=== PATIENT | male | born 1995 | race Two or more races ===

== ENCOUNTER 2023-08-11 18:24 | Emergency (ER) | payer MEDICAID, SELFPAY ==
[2023-08-11 19:00] VITALS: BP 121/68; PULSE 60; RESP 16; TEMP 36.6; O2SAT 100; BMI 38.3
--- NOTE | 2023-08-11 19:28 | ED_ITS ---
HPI - Abdominal Pain General Chief Complaint: Abdominal Pain Stated Complaint: Abdominal pain Time Seen by Provider: 08/11/23 18:46 Source: patient and family Mode of arrival: ambulatory Limitations: no limitations History of Present Illness HPI narrative: 28 yo male with PMH of THC use he comes in with c/o intermittent chronic abdominal pain and n/v notes the past few days have been bad with epigastric pain n/v every time he eats was seen at [facility] on 08/10 told he had normal labs and benign liver lesion. He notes he cannot keep anything down. Takes hot showers to relieve the pain. Was Rx carafate but it does not help. He uses the THC to help with stress and anxiety. US shows fatty liver and 1.2 cm hemangioma otehrwise normal GB, CBD, pancreas. MD elicited complaint: abdominal pain Pertinent past history: none Onset (ago): year(s) Pain Consistency: intermittent Location: epigastric Severity: severe Quality: stabbing Radiation: epigastric Migration to: no migration Exacerbating factors: eating Relieving factors: nothing Context: history of similar episodes Associated symptoms: nausea and vomiting Treatments prior to arrival: antacids Related Data Previous Rx's Medication Instructions Recorded lorazepam 1 mg tablet (Ativan) 1 mg PO BEDTIME PRN sleep #7 tabs 08/11/23 omeprazole 40 mg capsule,delayed 40 mg PO DAILY #14 caps 08/11/23 release ondansetron 4 mg disintegrating 4 mg PO Q8H PRN nausea and 08/11/23 tablet vomiting #20 tabs Allergies Allergy/AdvReac Type Severity Reaction Status Date / Time No Known Allergies Allergy Verified 08/11/23 19:00 Review of Systems Review of Systems Constitutional : No Weight loss, No Fever, No Chills ENT/Mouth : No sore throat, No Rhinorrhea Eyes: No Swelling, No Redness Cardiovascular : No Chest Pain, No SOB, NoEdema Respiratory : No Cough, No Sputum, No Wheezing Gastrointestinal : Positive Nausea, Positive Vomiting, positive Diarrhea, positive abdominal Pain, No Hematochezia, No Melena Genitourinary : No Dysuria, No Urinary Frequency, No Hematuria, No Urgency Musculoskeletal : No joint pain, No Myalgias, No Joint Swelling Skin : No Skin Lesions, No rash Neuro : No Weakness, No Numbness, No Dizziness, No Headache Psych : No Anxiety/Panic, No Depression Heme/Lymph: No Bruising, No Lymphadenopathy Endocrine : No Polyuria, No Polydipsia All other systems reviewed and are negative. [facility] Past Medical History Attestation statement: The following information was validated with the patient. Medical History Cyclical vomiting Social History Social History Patient Tobacco Use Status: Never used Tobacco Smoked in Last 30 Days: No Use of substances other than those prescribed or required for medical reasons: Yes Substance Use Type: Marijuana Substance Use Frequency: Chronic Longstanding Advance Directives: No Advance Directives Information Provided: No Physical Exam ED Vital Signs: Vital Signs - 24 hr 08/11/23 19:00 08/11/23 19:35 08/11/23 20:00 Temperature 97.8 F Pulse Rate 60 54 52 Respiratory Rate 16 18 16 Blood Pressure 121/68 130/78 138/78 Pulse Oximetry 100 98 98 Oxygen Delivery Method Room Air Room Air Room Air BMI result Body Mass Index 38.3 Appearance: Alert. Oriented X3. No acute distress. Eyes: Pupils equal, round and reactive to light. ENT: Pharynx mildly dry MM Neck: Normal inspection. Neck supple. CVS: Normal heart rate and rhythm. Pulses normal. Respiratory: No respiratory distress. Breath sounds normal. Abdomen: Soft and mild epigastric ttp . Skin: Skin warm and dry. Normal skin color. Normal skin turgor. Extremities: No lower extremity edema. No calf ttp Neuro: Oriented X 3. No motor deficit. No sensory deficit. Medical Decision Making Medical Decision Making MDM Narrative: 28 yo male with PMH of THC use and notes intermittent upper abdominal pain and n/v after eating. He does use hot showers. This is not new to him it has happened in the past. I suspect that this is THC induced vomiting vs gastritis vs PUD. At this time will obtain basic labs, IVF x 2L, pepcid and droperidol. Just had US and pain is mild in epigastric area has no RLQ pain doubt appendicitis, obstruction. Differential Diagnosis Differential Diagnoses: The differential diagnosis associated with the presentation includes gastritis, cylical vomiting, PUD, THC induced emesis syndrome Admission/Observation Consideration of admission/observation: Escalation of care including admission/observation considered feels better tolerating PO wants to go home Lab Data MDM Lab Attestation statement: I reviewed the patient's lab results. 08/11/23 19:34 08/11/23 19:34 Labs: Lab Results 08/11/23 Range/Units 19:34 WBC 9.7 (4.8-10.8) X10*3/uL RBC 5.16 (4.60-5.80) X10*6/uL Hgb 14.6 (14.0-18.0) g/dl Hct 43.2 (42.0-52.0) % MCV 83.7 (80.0-98.0) fL MCH 28.3 (27.0-33.0) pg MCHC 33.8 (31.0-36.0) g/dl RDW 13.0 (11.0-16.0) % Plt Count 287 (160-400) X10*3/uL MPV 9.8 (9.4-12.4) fL Immature Gran % (Auto) 0.2 (0.0-0.4) % Neut % (Auto) 69.2 (45-73) % Lymph % (Auto) 23.5 (20-40) % [place] % (Auto) 6.5 (2-11) % Eos % (Auto) 0.4 (0-4) % Baso % (Auto) 0.2 (0-2) % Lymph # (Auto) 2.3 (1.2-4.9) X10*3/uL [place] # (Auto) 0.6 (0.1-1.2) X10*3/uL Eos # (Auto) 0.0 (0.0-0.4) X10*3/uL Baso # (Auto) 0.0 (0.0-0.2) X10*3/uL Abs Immat Gran (auto) 0.02 (0.00-0.03) X10*3/uL Absolute Neuts (auto) 6.7 (2.0-8.3) x10*3/uL Absolute Nucleated RBC 0.000 (0.0-0.012) X10*3/uL Nucleated RBC % (auto) 0.0 (0.0-0.2) /100WBC Sodium 140 (135-145) mmol/L Potassium 3.9 (3.3-5.1) mmol/L Chloride 108 (96-108) mmol/L Carbon Dioxide 19 L (22-29) mmol/L Anion Gap 17 (12-20) BUN 9 (9-16) mg/dL Creatinine 1.04 (0.5-1.4) mg/dL Estim Creat Clear Calc 119.7 Estimated GFR > 60 Random Glucose 90 (60-115) mg/dL Calcium 9.5 (8.4-10.2) mg/dL Magnesium 2.1 (1.6-2.6) mg/dL Total Bilirubin 0.7 (0.0-1.0) mg/dL Direct Bilirubin 0.2 (0.0-0.5) mg/dL AST 17 (5-37) U/L ALT 21 (0-40) U/L Alkaline Phosphatase 88 (39-117) U/L Total Protein 7.7 (6.5-8.0) g/dL Albumin 4.4 (3.5-5.0) g/dL Lipase 17 (8-78) U/L Independent Historian Clinical information obtained from an independent historian. History obtained from or confirmed by: Spouse External Record Review External record reviewed: Outpatient record and Prior outpatient radiology Prescription Management I considered prescription management with: Other Medications Administered Discontinued Medications Generic Name Dose Route Start Last Admin Trade Name Freq PRN Reason Stop Dose Admin Droperidol 1.25 mg 08/11/23 19:27 08/11/23 19:49 Droperidol 5 Mg/2 Ml Vial IVPUSH 08/11/23 19:28 1.25 mg ONCE ONE Administration Famotidine 20 mg 08/11/23 19:27 08/11/23 19:49 Famotidine/Pf 20 Mg/2 Ml Vial IVPUSH 08/11/23 19:28 20 mg ONCE ONE Administration Sodium Chloride 1,000 mls @ 999 mls/hr 08/11/23 19:30 08/11/23 19:50 Ns IV 08/11/23 20:30 999 mls/hr .Q1H1M CLAUDETTE Administration Sodium Chloride 1,000 mls @ 999 mls/hr 08/11/23 19:30 08/11/23 19:51 Ns IV 08/11/23 20:30 999 mls/hr .Q1H1M CLAUDETTE Administration Discharge Plan Discharge Clinical Impression: Cyclical vomiting Patient Disposition: Home, Self-Care Instructions: Acute Nausea and Vomiting (ED) Additional Instructions: eat a bland diet and advance slowly over 48 hours return for worsening symptoms. stay hydrated. stop the carafate. follow up with primary care doctor stop smoking marijuana Prescriptions: New omeprazole 40 mg capsule,delayed release(DR/EC) 40 mg PO DAILY Qty: 14 0RF lorazepam [Ativan] 1 mg tablet 1 mg PO BEDTIME PRN (Reason: sleep) Qty: 7 0RF ondansetron 4 mg tablet,disintegrating 4 mg PO Q8H PRN (Reason: nausea and vomiting) Qty: 20 0RF
[2023-08-11 19:35] VITALS: BP 130/78; PULSE 54; RESP 18; O2SAT 98
--- NOTE | 2023-08-11 19:38 | MHC.EDTECH ---
Called Irene @ 1938 to get records per ,awaiting fax at this time
[2023-08-11 19:40] LABS: MANUAL DIFF FLAG NO
[2023-08-11 19:46] LABS: Basophils Percent Auto 0.2 % (0-2); Eosinophils Percent Auto 0.4 % (0-4); Hematocrit 43.2 % (42.0-52.0); Hemoglobin 14.6 g/dl (14.0-18.0); Imm Gran Abs Auto 0.02 X10*3/uL (0.00-0.03); Imm Gran Pct Auto 0.2 % (0.0-0.4); Lymphocytes Absolute Auto 2.3 X10*3/uL (1.2-4.9); Lymphocytes Percent Auto 23.5 % (20-40); Mean Corpuscular HGB Conc 33.8 g/dl (31.0-36.0); Mean Corpuscular Hemoglobin 28.3 pg (27.0-33.0); Mean Corpuscular Volume 83.7 fL (80.0-98.0); Mean Platelet Volume 9.8 fL (9.4-12.4); Monocytes Absolute Auto 0.6 X10*3/uL (0.1-1.2); Monocytes Percent Auto 6.5 % (2-11); Neutrophils Absolute Auto 6.7 x10*3/uL (2.0-8.3); Neutrophils Percent Auto 69.2 % (45-73); Platelet Count 287 X10*3/uL (160-400); Red Blood Count 5.16 X10*6/uL (4.60-5.80); White Blood Count 9.7 X10*3/uL (4.8-10.8)
[2023-08-11] MEDS: droPERidol 5 MG/2 ML VIAL 1.25 MG IVPUSH (19:49)
[2023-08-11] MEDS: Famotidine/PF 20 MG/2 ML VIAL IVPUSH (19:49)
[2023-08-11] MEDS: 0.9 % Sodium Chloride 1,000 ML 999 ML IV ×2 (19:50→19:51)
[2023-08-11 19:58] LABS: Alanine Aminotransferase 21 U/L (0-40); Albumin Level 4.4 g/dL (3.5-5.0); Alkaline Phosphatase 88 U/L (39-117); Anion Gap 17 (12-20); Aspartate Amino Transferase 17 U/L (5-37); Bilirubin Direct 0.2 mg/dL (0.0-0.5); Bilirubin Total 0.7 mg/dL (0.0-1.0); Blood Urea Nitrogen 9 mg/dL (9-16); Calcium 9.5 mg/dL (8.4-10.2); Carbon Dioxide 19 mmol/L (22-29); Chloride 108 mmol/L (96-108); Creatinine Clr Calc Pharmacy 119.7; Estimated Glomerular Filt Rate > 60; Glucose Random 90 mg/dL (60-115); Lipase 17 U/L (8-78); Magnesium 2.1 mg/dL (1.6-2.6); Potassium 3.9 mmol/L (3.3-5.1); Sodium 140 mmol/L (135-145); Total Protein 7.7 g/dL (6.5-8.0)
[2023-08-11 20:00] VITALS: BP 138/78; PULSE 52; RESP 16; O2SAT 98
== END 2023-08-11 21:08 | disposition home or self-care (01) ==
PROVIDERS: Emergency Provider Emergency Medicine
DX: R11.15 Cyclical vomiting syndrome unrelated to migraine (principal); R10.13 Epigastric pain; R11.2 Nausea with vomiting, unspecified; Z79.899 Other long term (current) drug therapy
CPT/HCPCS: 36415; 80048; 80076; 83690; 83735; 85025; 96361; 96374; 96375; 99284; J1790

== ENCOUNTER 2024-10-21 11:07 | Outpatient (REF) | payer OTHER, SELFPAY ==
--- OUTSIDE RECORDS SUMMARY | 2024-10-22 12:35 | XMS_ITS | Clinical Summary ---
Author Organization [facility] Address [address] [place] [address] Phone Care Team Providers Care Ballistics Tester Name Role Phone Physician, No Pcp Primary Care Provider Unavaila ble Allergies No known active allergies Medications No known medications Active Problems No known active problems Encounters Date Type Department Care Team Description 09/06/2024 9:36 AM EDT - 09/06/2024 11:[address] [facility] Emergency [address] [place] [address] Sprain of left shoulder, unspecified shoulder sprain type, initial encounter (Primary Dx) Discharge Disposition: Home or Self Care from Last 3 Months Social History Tobacco Use Types Packs/Day Years Used Date Smoking Tobacco: Never Smokeless Tobacco: Never Tobacco Cessation:Counseling Given: Not Answered Sex and Gender Information Value Date Recorded Sex Assigned at Male 09/06/2024 9:43 AM EDT Legal Sex Male 1:36 PM EDT Gender Identity Male 09/06/2024 9:43 AM EDT Sexual Orientation Straight 09/06/2024 9: 43 AM EDT Obstetrics History Last Filed Vital Signs Vital Sign Reading Time Taken Comments Blood Pressure 141/89 09/06/2024 10:05 AM EDT Pulse 70 09/06/2024 10:05 AM EDT Temperature 37.5 ??C (99.5 ??F) 09/06/2024 10:05 AM E DT Respiratory Rate 20 09/06/2024 10:05 AM EDT Oxygen Saturation 100% 09/06/2024 10:05 AM EDT Inhaled Oxygen Concentration - - Weight 98.9 kg (218 lb) 09/06/2024 10:05 AM EDT Height 167.6 cm (5' 6 ) 09/06/2024 10:05 AM EDT Body Mass Index 35.19 09/06/2024 10:05 AM EDT Plan of Treatment Health Maintenance Due Date Last Done Comments DTaP,Tdap,and Td Vaccines (1 - Tdap) 02/28/2016 Hepatitis B Vaccines (1 of 3 - 19+ 3-dose series) 02/28/2016 Depression Screening 01/09/2024 HIV Screening 01/09/2024 Hepatitis C Screening 01/09/2024 Social Influencers of Health Screening 01/09/2024 COVID-19 Vaccine (1 - 2023-2 5 season) 2024 Influenza Vaccine (Season Ended) 2025 HIB Vaccines Aged Out No longer eligi ble based on patient's age to complete this topic HPV Vaccines Aged Out No longer eligi ble based on patient's age to complete this topic Hepatitis A Vaccines Aged Out No long er eligible based on patient's age to complete this topic IPV Vaccines Aged Out No longer eligi ble based on patient's age to complete this topic MMR Vaccines Aged Out No longer eligi ble based on patient's age to complete this topic Meningococcal ACWY Vaccine Aged Out N o longer eligible based on patient's age to complete this topic Meningococcal B Vaccine Aged Out No l onger eligible based on patient's age to complete this topic Pneumococcal Vaccine: Pediat rics (0 to 5 Years) and At-Risk Patients (6 to 64 Years) Aged Out No longer eligible b ased on patient's age to complete this topic RSV Immunization Patients Un dat 20 months Aged Out No longer eligible b ased on patient's age to complete this topic Varicella Vaccines Aged Out No longer eligible based on patient's age to complete this topic Procedures Procedure Name Priority Date/Time Associated Diagnosis Comments XR SHOULDER 2+ VIEWS LEFT STAT 09/06/2024 10:33 AM EDT from Last 3 Months Results * XR Shoulder 2+ Views Left (09/06/2024 10:33 AM EDT) Anatomical Region Laterality Modality Upper Extremities, Shoulder Left Radi ographic Imaging 09/06/2024 10:3 9 AM EDT Impressions 09/06/2024 10:40 AM EDT Impression: Possible acromioclavicular sprain. Telerad PA ([id number]) -------- FINAL REPORT -------- Dictated By: Kesley Jamison Dictated Date: 09/06/2024 10:39 ET Assigned Physician: Kelsey Jamison Reviewed and Electronically Signed By: Kelsey Jamison Signed Date: 09/06/2024 10:40 ET Workstation ID: [id number] Transcribed By: Self Edit Transcribed Date: 09/06/2024 10:39 ET Narrative 09/06/2024 10:40 AM EDT History: Left shoulder pain since lifting something heavy yesterday. Findings: 3 views of the left shoulder. The glenohumeral joint is well maintained. Apparent widening of the acromioclavicular distance may reflect acromioclavicular sprain. No fracture is identified. The overlying soft tissues are unremarkable. Procedure Note Kelsey Jamison MD - 09/06/2024 History: Left shoulder pain since lifting something heavy yesterday. Findings: 3 views of the left shoulder. The glenohumeral joint is well maintained.Apparent widening of the acromioclavicular distance may reflectacromioclavicular sprain. No fracture is identified. The overlying softtissues are unremarkable. IMPRESSION: Impression: Possible acromioclavicular sprain. Telerad PA ([id number]) -------- FINAL REPORT -------- Dictated By: Kelsey Jamison Dictated Date: 09/06/2024 10:39 ET Assigned Physician: Kelsey Jamison Reviewed and Electronically Signed By: Kelsey Jamison Signed Date: 09/06/2024 10:40 ET Workstation ID: [id number] Transcribed By: Self Edit Transcribed Date: 09/06/2024 10:39 ET Elif GOLDSMITH IMG XR PROCEDURES Final Result from Last 3 Months Insurance MEDICAID - [place] [facility] [address] [place] [address] Care Teams Ballistics Tester Relationship Specialty Start Date End Date Physician, No Pcp PCP - General 09/06/24
== END 2024-10-21 11:08 | disposition home or self-care (01) ==
LOC: HO.HOSX 11:07
PROVIDERS: Visit Provider Physician Assistant
DX: Z13.89 Encounter for screening for other disorder (principal)